=== PATIENT | male | born 1995 | race Two or more races ===

== ENCOUNTER 2020-06-04 12:58 | Emergency (ER) | payer MEDICAID, SELFPAY ==
--- NOTE | 2020-06-04 13:05 | ED_ITS ---
HPI - Psych General Chief Complaint: Psychiatric Symptoms Stated Complaint: CRISIS Time Seen by Provider: 06/04/20 13:03 Source: EMS Mode of arrival: EMS Limitations: no limitations History of Present Illness HPI Narrative: 24-year-old male who reports he has history of depression/anxiety and PTSD presents via EMS from home with complaint of suicidal ideations with increased depression and voices in his head telling him to do stuff. He reports that he does have any specific triggers recently however he has been feeling more down. He denies any illicit drug use, no alcohol use. Denies any actions prior to arrival to hurt himself. No specific plan expressed. MD complaint: suicidal ideation and feels depressed Onset (ago): day(s) Duration: constant History of same: Yes Relieving factors: none Exacerbating factors: none Treatments prior to arrival: none If self harm: admits thoughts of self harm Related Data Allergies Allergy/AdvReac Type Severity Reaction Status Date / Time No Known Allergies Allergy Verified 06/04/20 13:20 Review of Systems Review of Systems: Constitutional: No Weight loss, No Fever, No Chills, No Night Sweats, No Fatigue, No Malaise ENT/Mouth: No Hearing loss, No Ear Pain, No Nasal Congestion, No Sinus Pain, No Hoarseness, No sore throat, No Rhinorrhea, No Swallowing Difficulty Eyes: No Eye Pain, No Swelling, No Redness, No Foreign Body, No Discharge, No Vision Changes Cardiovascular: No Chest Pain, No SOB, No Dyspnea on Exertion, No Orthopnea, No Edema, No Palpitations Respiratory: No Cough, No Sputum, No Wheezing, No Smoke Exposure, No Dyspnea Gastrointestinal: No Nausea, No Vomiting, No Diarrhea, No Constipation, No abdominal Pain, No Hematochezia, No Melena Genitourinary: no irregular bleeding, No Dysuria, No Urinary Frequency, No Hematuria, No Urinary Incontinence, No Urgency, No Flank Pain, No Urinary Flow Changes, No Hesitancy Musculoskeletal: No joint pain, No Myalgias, No Joint Swelling Skin: No Skin Lesions, No rash Neuro: No Weakness, No Numbness, No Paresthesias, No Loss of Consciousness, No Dizziness, No Headache Psych: as noted in HPI Heme/Lymph: No Bruising, No Bleeding,No Lymphadenopathy Endocrine: No Polyuria, No Polydipsia, No Temperature Intolerance Yes all other systems are reviewed and are negative [facility] Past Medical History Attestation statement: The following information was validated with the patient. Medical History (Updated 06/04/20 @ 16:25 by Willie Ferrell NP) Anxiety Depression Hypoglycemia Social History Social History Alcohol intake: never Smoked in Last 30 Days: No Use of substances other than those prescribed or required for medical reasons: No Advance Directives: No Advance Directives Information Provided: Yes Physical Exam Vital Signs: Vital Signs: Last Vital Signs Temp 98.2 F 06/04/20 16:04 Pulse 60 06/04/20 16:04 Resp 18 06/04/20 16:04 BP 119/77 06/04/20 16:04 Pulse Ox 98 06/04/20 16:04 Body Mass Index 27.0 Reviewed Const: Other: Flat affect General: cooperative and healthy appearing; No acute distress or intoxicated appearing Nutritional Appearance: average body habitus Orientation/consciousness: patient oriented x3 HENMT: Head: Yes normal to inspection Ears: hearing grossly normal bilaterally Eyes: General: appearance normal, both eyes and all related structures Visual Manzanares: normal visual manzanares by confrontation Neck: Neck: Yes normal visual inspection, No positive Brudzinski's sign, No positive Kernig's sign and No tender Thyroid: Thyroid normal Chest: Chest palpation & inspection: normal inspection of the chest Resp: Effort & Inspection: normal respiratory effort Cardio: Jugular venous distension: no JVD GI: Inspection: Yes normal to inspection Percussion: Yes normal to percussion Auscultation: normal bowel sounds : General: Yes no CVA tenderness Back/Spine/Pelvis: Back: no CVA tenderness Skin: General skin exam: no rashes or lesions noted Neuro: General: patient oriented x3 Extrem: General: Yes normal to inspection Course Course Course Narrative: 1301 In review 24-year-old male with reported history of anxiety, depression and PTSD presenting with increased feeling of depression with auditory hallucinations and thoughts of self-harm with no specific plan expressed. Offers no medical complaints. Well nontoxic appearing. Will need medical screening labs and it is crisis evaluation after medically clear. Reevaluation(s) Reevaluation #1: Evaluate care team cleared for discharge. Referral made to outpatient also primary care information provided. Patient feels comfortable plan. No SI or HI. Cleared for discharge. Consultations Consultation #1: Care team Bing MDM - Psych Restraints Face to Face Assessment: Face to Face Assessment: Current Situation: After assessment of the patient, a review of the pertinent medical record and a discussion with nursing staff, I feel the patient requires a restrain interve ntion. Reaction To: [] Medical Condition: [] Behavioral State: [] Continued Need: [] Lab Data Result diagrams: 06/04/20 13:38 06/04/20 13:38 Labs: Lab Results 06/04/20 06/04/20 06/04/20 Range/Units 13:38 13:38 13:38 WBC 11.8 H (4.8-10.8) X10*3/uL RBC 5.05 (4.60-5.80) X10*6/uL Hgb 13.3 L (14.0-18.0) g/dl Hct 40.0 L (42-52) % MCV 79.2 L (80-98) fL MCH 26.3 L (27.0-33.0) pg MCHC 33.3 (31.0-36.0) g/dl RDW 14.1 (11.0-16.0) % Plt Count 267 (160-400) X10*3/uL MPV 9.4 (9.4-12.4) fL Immature Gran % (Auto) 0.3 (0.0-0.4) % Neut % (Auto) 72.6 (45-73) % Lymph % (Auto) 19.2 L (20-40) % [place] % (Auto) 7.3 (2-11) % Eos % (Auto) 0.3 (0-4) % Baso % (Auto) 0.3 (0-2) % Lymph # (Auto) 2.3 (1.2-4.9) X10*3/uL [place] # (Auto) 0.9 (0.1-1.2) X10*3/uL Eos # (Auto) 0.0 (0.0-0.4) X10*3/uL Baso # (Auto) 0.0 (0.0-0.2) X10*3/uL Abs Immat Gran (auto) 0.04 H (0.00-0.03) X10*3/uL Absolute Neuts (auto) 8.6 H (2.0-8.3) X10*3/uL Absolute Nucleated RBC 0.000 (0.0-0.012) X10*3/uL Nucleated RBC % (auto) 0.0 (0.0-0.2) /100WBC Sodium 139 (135-145) mmol/L Potassium 3.9 (3.3-5.1) mmol/l Chloride 104 (96-108) mmol/L Carbon Dioxide 29 (22-29) mmol/L Anion Gap 10 L (12-20) BUN 9 (9-16) mg/dL Creatinine 0.86 (0.5-1.4) mg/dL Estim Creat Clear Calc 147.1 Estimated GFR > 60 Random Glucose 93 (60-115) mg/dL Calcium 9.6 (8.4-10.2) mg/dL Total Bilirubin 0.6 (0.0-1.0) mg/dL AST 15 (5-37) U/L ALT 19 (0-40) U/L Alkaline Phosphatase 67 (39-117) U/L Total Protein 7.6 (6.5-8.0) g/dL Albumin 4.5 (3.5-5.0) g/dL Urine Color Urine Appearance Urine pH (5.0-8.0) Ur Specific [place] (1.005-1.025) Urine Protein (NEG-TRACE) MG/DL Urine Glucose (UA) (NEG) MG/DL Urine Ketones (NEG) MG/DL Urine Blood (NEG) Urine Nitrite (NEG) Ur Leukocyte Esterase (NEG) Urine Opiates Screen (Not Detect) Ur Barbiturates Screen (Not Detect) Ur Phencyclidine Scrn (Not Detect) Ur Amphetamines Screen (Not Detect) U Benzodiazepines Scrn (Not Detect) Urine Cocaine Screen (Not Detect) U Marijuana (THC) Screen (Not Detect) Ethyl Alcohol < 10 mg/dL 06/04/20 06/04/20 Range/Units 13:38 13:38 WBC (4.8-10.8) X10*3/uL RBC (4.60-5.80) X10*6/uL Hgb (14.0-18.0) g/dl Hct (42-52) % MCV (80-98) fL MCH (27.0-33.0) pg MCHC (31.0-36.0) g/dl RDW (11.0-16.0) % Plt Count (160-400) X10*3/uL MPV (9.4-12.4) fL Immature Gran % (Auto) (0.0-0.4) % Neut % (Auto) (45-73) % Lymph % (Auto) (20-40) % [place] % (Auto) (2-11) % Eos % (Auto) (0-4) % Baso % (Auto) (0-2) % Lymph # (Auto) (1.2-4.9) X10*3/uL [place] # (Auto) (0.1-1.2) X10*3/uL Eos # (Auto) (0.0-0.4) X10*3/uL Baso # (Auto) (0.0-0.2) X10*3/uL Abs Immat Gran (auto) (0.00-0.03) X10*3/uL Absolute Neuts (auto) (2.0-8.3) X10*3/uL Absolute Nucleated RBC (0.0-0.012) X10*3/uL Nucleated RBC % (auto) (0.0-0.2) /100WBC Sodium (135-145) mmol/L Potassium (3.3-5.1) mmol/l Chloride (96-108) mmol/L Carbon Dioxide (22-29) mmol/L Anion Gap (12-20) BUN (9-16) mg/dL Creatinine (0.5-1.4) mg/dL Estim Creat Clear Calc Estimated GFR Random Glucose (60-115) mg/dL Calcium (8.4-10.2) mg/dL Total Bilirubin (0.0-1.0) mg/dL AST (5-37) U/L ALT (0-40) U/L Alkaline Phosphatase (39-117) U/L Total Protein (6.5-8.0) g/dL Albumin (3.5-5.0) g/dL Urine Color YELLOW Urine Appearance CLEAR Urine pH 6.5 (5.0-8.0) Ur Specific [place] 1.020 (1.005-1.025) Urine Protein TRACE (NEG-TRACE) MG/DL Urine Glucose (UA) NEG (NEG) MG/DL Urine Ketones NEG (NEG) MG/DL Urine Blood NEG (NEG) Urine Nitrite NEG (NEG) Ur Leukocyte Esterase NEG (NEG) Urine Opiates Screen Not Detected (Not Detect) Ur Barbiturates Screen Not Detected (Not Detect) Ur Phencyclidine Scrn Not Detected (Not Detect) Ur Amphetamines Screen Not Detected (Not Detect) U Benzodiazepines Scrn Not Detected (Not Detect) Urine Cocaine Screen Not Detected (Not Detect) U Marijuana (THC) Screen Not Detected (Not Detect) Ethyl Alcohol mg/dL Discharge Plan Discharge Clinical Impression: Depression Patient Disposition: Home, Self-Care Instructions: Depression (ED) Referrals: ED Physician,Generic [Emergency Provider] - 2 days (Primary care Your psychiatric team )
[2020-06-04 13:20] VITALS: BP 134/92; BP 147/97; PULSE 76; PULSE 80; RESP 18; TEMP 36.4; O2SAT 96; O2SAT 99; BMI 27.0
[2020-06-04 13:48] LABS: MANUAL DIFF FLAG NO
[2020-06-04 13:50] LABS: Basophils Percent Auto 0.3 % (0-2); Eosinophils Percent Auto 0.3 % (0-4); Hemoglobin 13.3 g/dl (14.0-18.0); Imm Gran Abs Auto 0.04 X10*3/uL (0.00-0.03); Imm Gran Pct Auto 0.3 % (0.0-0.4); Lymphocytes Absolute Auto 2.3 X10*3/uL (1.2-4.9); Lymphocytes Percent Auto 19.2 % (20-40); Mean Corpuscular HGB Conc 33.3 g/dl (31.0-36.0); Mean Corpuscular Hemoglobin 26.3 pg (27.0-33.0); Mean Corpuscular Volume 79.2 fL (80-98); Mean Platelet Volume 9.4 fL (9.4-12.4); Monocytes Absolute Auto 0.9 X10*3/uL (0.1-1.2); Monocytes Percent Auto 7.3 % (2-11); Neutrophils Absolute Auto 8.6 X10*3/uL (2.0-8.3); Neutrophils Percent Auto 72.6 % (45-73); Platelet Count 267 X10*3/uL (160-400); Red Blood Count 5.05 X10*6/uL (4.60-5.80); Red Cell Distribution Width 14.1 % (11.0-16.0); White Blood Count 11.8 X10*3/uL (4.8-10.8)
[2020-06-04 13:55] LABS: Glucose Urine UA NEG (NEG); Leukocyte Esterase Urine NEG (NEG); Nitrite Urine NEG (NEG); PH 6.5 (5.0-8.0); Urine Blood NEG (NEG); Urine Ketones NEG (NEG); Urine Protein TRACE MG/DL (NEG-TRACE)
[2020-06-04 13:59] LABS: Appearance Urine CLEAR; Color Urine YELLOW
[2020-06-04 14:30] LABS: Alanine Aminotransferase 19 U/L (0-40); Albumin Level 4.5 g/dL (3.5-5.0); Alkaline Phosphatase 67 U/L (39-117); Anion Gap 10 (12-20); Aspartate Amino Transferase 15 U/L (5-37); Bilirubin Total 0.6 mg/dL (0.0-1.0); Blood Urea Nitrogen 9 mg/dL (9-16); Calcium 9.6 mg/dL (8.4-10.2); Carbon Dioxide 29 mmol/L (22-29); Chloride 104 mmol/L (96-108); Creatinine Clr Calc Pharmacy 147.1; Estimated Glomerular Filt Rate > 60; Glucose Random 93 mg/dL (60-115); Potassium 3.9 mmol/l (3.3-5.1); Sodium 139 mmol/L (135-145); Total Protein 7.6 g/dL (6.5-8.0)
[2020-06-04 14:31] LABS: Ethanol < 10 mg/dL
[2020-06-04 14:33] LABS: Amphetamine Screen Urine Not Detected (Not Detect); Barbiturates, Urine Not Detected (Not Detect); Benzodiazepines Screen Urine Not Detected (Not Detect); Cannabinoid Screen Urine Not Detected (Not Detect); Cocaine Screen Urine Not Detected (Not Detect); Opiate Screen Urine Not Detected (Not Detect); Phencyclidine Screen Urine Not Detected (Not Detect)
--- NOTE | 2020-06-04 15:23 | PC.NURSE ---
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 pt remains calm.
[2020-06-04 16:04] VITALS: BP 119/77; PULSE 60; RESP 18; TEMP 36.8; O2SAT 98
--- NOTE | 2020-06-04 17:04 | MHC.CARE ---
Seen by CARE team, cleared for D/C with recommendations and referral information.
== END 2020-06-04 17:00 | disposition home or self-care (01) ==
PROVIDERS: Nurse Practitioner Primary Care; Emergency Provider Emergency Medicine
DX: F33.1 Major depressive disorder, recurrent, moderate (principal); R45.851 Suicidal ideations; R44.0 Auditory hallucinations; F41.1 Generalized anxiety disorder; F43.0 Acute stress reaction; Z79.899 Other long term (current) drug therapy
CPT/HCPCS: 36415; 80053; 80307; 80320; 81003; 85025; 99284

== ENCOUNTER 2020-06-28 13:21 | Outpatient (REF) | payer MEDICAID, SELFPAY | END 2020-06-28 13:22 | disposition home or self-care (01) | LOC: HO.LAB 13:21 | PROVIDERS: Visit Provider Internal Medicine | DX: Z20.828 Contact with and (suspected) exposure to other viral communicable diseases (principal) | CPT/HCPCS: C9803; U0003 ==

== ENCOUNTER 2020-07-09 22:54 | Emergency (ER) | payer MEDICAID, SELFPAY ==
[2020-07-09 23:07] VITALS: BP 138/88; PULSE 99; RESP 18; TEMP 37; O2SAT 100; BMI 64.5
[2020-07-09 23:10] VITALS: BP 134/88; PULSE 96; RESP 18; TEMP 37; O2SAT 99; BMI 64.5
--- NOTE | 2020-07-09 23:13 | XR_ITS ---
EXAMINATION: CHEST 1 VIEW CLINICAL INFORMATION: Chest congestion. COMPARISON: 10/10/2017. TECHNIQUE: An AP view of the chest is provided. FINDINGS: The cardiac silhouette is not enlarged. The mediastinal and hilar contours are unremarkable. There are neither pleural effusions nor pneumothoraces. There are no consolidations. The osseous structures are stable. XR/XR chest 1V IMPRESSION: No evidence for acute disease.
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
== END 2020-07-09 23:24 | disposition home or self-care (01) ==
PROVIDERS: Emergency Provider Internal Medicine
DX: U07.1 COVID-19 (principal)
CPT/HCPCS: 71045; 99283

== ENCOUNTER 2021-07-21 14:13 | Emergency (ER) | payer MEDICAID, SELFPAY ==
--- NOTE | ~2021-07-21 | XR_ITS ---
EXAMINATION: XR ANKLE, RIGHT CLINICAL INFORMATION: Fall. COMPARISON: None TECHNIQUE: AP, lateral, and mortise views of the right ankle. FINDINGS: The bones and soft tissues are normal. No fracture. Alignment is anatomic. Joint spaces are maintained. No joint effusion. XR/XR ankle RT min 3V IMPRESSION: Normal right ankle.
[2021-07-21 17:50] VITALS: BP 135/84; PULSE 95; TEMP 36.6; O2SAT 98; BMI 30.1
--- NOTE | 2021-07-21 22:45 | ED_ITS ---
HPI - Extremity Injury (Lower) General Chief Complaint: Extremity Injury, Lower Stated Complaint: r ankle inj Time Seen by Provider: 07/21/21 14:22 Source: patient Mode of arrival: ambulatory Limitations: no limitations History of Present Illness HPI Narrative: 25-year-old male who presents emergency department for evaluation of right ankle pain. He states that he has been having pain in his right ankle for 4 months. He states that the right ankle is swollen. He states that the pain is worse after he stands for long period of time right free walks for long period of time. States the pain is a constant, dull ache which is 6/10. States that today he was unable to work secondary to his ankle pains he came to the emergency department for evaluation. He denies any injury to his ankle. He denies fever, chills, fatigue. Related Data Previous Rx's Medication Instructions Recorded ibuprofen 600 mg tablet 600 mg PO Q8H PRN #30 tab 07/21/21 Allergies Allergy/AdvReac Type Severity Reaction Status Date / Time No Known Allergies Allergy Verified 06/04/20 13:20 Review of Systems Review of Systems: Yes all other systems are reviewed and are negative [facility] Past Medical History [facility] Narrative: Social history: The patient works at [employer]. He denies tobacco use. He states he occasionally drinks alcohol. He denies drug use. Medical History Anxiety Depression Hypoglycemia Social History Social History Alcohol intake: never Advance Directives: No Physical Exam Vital Signs: Vital Signs: Last Vital Signs Temp 97.9 F 07/21/21 17:50 Pulse 95 07/21/21 17:50 BP 135/84 07/21/21 17:50 Pulse Ox 98 07/21/21 17:50 BMI result Body Mass Index 30.1 Const: Other: Awake, alert, male patient, he does not appear to be in distress, he is pleasant and cooperative and answers all questions appropriately Orientation/consciousness: oriented to person and oriented to place HENMT: Head: Yes normal to inspection, Yes normocephalic and Yes atraumatic Chest: Chest palpation & inspection: normal inspection of the chest Resp: Effort & Inspection: normal respiratory effort Neuro: General: oriented to person and oriented to place Extrem: Other: patient has soft tissue swelling to the lateral malleolus, this area is tender to palpation, the patient has pain with medial stress of the joint, there is no erythema or increased warmth. Psych: Appearance: grossly normal Speech and movement: Normal speech and movement present Course Course Course Narrative: 25-year-old male who presents emergency department for evaluation right ankle pain x4 months. The patient does not recount any injury. states these had swelling in the right ankle and this is often worse with prolonged standing and with walking. The pain was worse today knee was unable to work therefore came to emergency department for evaluation. Initial vital signs were normal. Examination of his right ankle did reveal soft tissue swelling over the lateral malleolus with pain with palpation of this area and pain with medial stress or of the joint. X-rays were obtained and there was no acute fracture noted. I suspect the patient has a sprain to his right ankle. His ankle was wrapped with an Jacek wrap and he was given a Aircast. He was prescribed ibuprofen 600 mg 3 times a day as needed for pain. He was given a note not return to work until Monday July 26, 2021. Discharge Plan Discharge Clinical Impression: Mild sprain of right ankle Patient Disposition: Home, Self-Care Instructions: Ankle Sprain (ED) Additional Instructions: The x-ray of your right ankle revealed no fracture or broken bone. Your examination did reveal swelling on the outside part of your ankle which is consistent with an ankle sprain. Wear the Jacek wrap and use the Aircast for 1 week. When you are not walking keep your leg elevated and apply ice to the swollen area to help reduce the pain and swelling. Take ibuprofen 600 mg pills, 1 pills every 6 hours as needed for pain. Follow-up with your doctor in 2 days. Please return to the emergency department if your symptoms get worse or if you develop any symptoms that are concerning to you. Please see work note Prescriptions: New ibuprofen 600 mg tablet 600 mg PO Q8H PRN (Reason: fever or pain) Qty: 30 RF: 0 Stand Alone Forms: Work/School Release
== END 2021-07-21 23:36 | disposition home or self-care (01) ==
PROVIDERS: Emergency Provider Emergency Medicine Emergency Medical Services
DX: S93.401A Sprain of unspecified ligament of right ankle, initial encounter (principal); X58.XXXA Exposure to other specified factors, initial encounter; Y93.9 Activity, unspecified; Y92.9 Unspecified place or not applicable; Y99.9 Unspecified external cause status
CPT/HCPCS: 73610; 99283; 99284

== ENCOUNTER 2022-06-15 21:31 | Emergency (ER) | payer MEDICAID, SELFPAY ==
--- NOTE | ~2022-06-15 | CT_ITS ---
EXAMINATION: CT HEAD WITHOUT CONTRAST CLINICAL INFORMATION: Pain. new onset seizure? COMPARISON: None. TECHNIQUE: Contiguous axial imaging was performed of the head without the administration of IV contrast. This CT examination was performed using dose optimization techniques as appropriate, variously including the following: *Automated exposure control *Adjustment of mA and/or kV according to patient size (this includes techniques or standardized protocols for targeted exams where dose is matched to indication/reason for exam; i.e. extremities or head) *Use of iterative reconstruction technique Dose: 716 mGy-cm FINDINGS: There is no evidence of acute intracranial hemorrhage or territorial infarction. No abnormal mass-effect or midline shift is seen. Box to white matter differentiation is well preserved. No extra axial fluid collections. The ventricles are normal in size and configuration. There is no abnormal attenuation within the brain parenchyma. The soft tissues and osseous structures are normal. Mucosal thickening is evident within the imaged paranasal sinuses with relative sparing of the frontal sinuses. Mastoid air cells are clear. CT/CT head/brain wo IV con IMPRESSION: 1. No acute intracranial pathology. If seizure is suspected, consider follow-up MRI of the brain with and without contrast on a nonemergent basis as this would be more sensitive and specific for potential epileptogenic foci. 2. Paranasal sinus mucosal disease.
[2022-06-15 21:37] VITALS: BP 151/100; PULSE 94; RESP 17; TEMP 36.7; O2SAT 100
[2022-06-15 21:47] LABS: Glucose, Whole Blood 92 mg/dL (60-115)
[2022-06-15 21:51] LABS: Basophils Percent Auto 0.3 % (0-2); Eosinophils Absolute Auto 0.3 X10*3/uL (0.0-0.4); Eosinophils Percent Auto 1.9 % (0-4); Hematocrit 32.7 % (42.0-52.0); Hemoglobin 10.5 g/dl (14.0-18.0); Imm Gran Abs Auto 0.04 X10*3/uL (0.00-0.03); Imm Gran Pct Auto 0.3 % (0.0-0.4); Lymphocytes Absolute Auto 2.2 X10*3/uL (1.2-4.9); MANUAL DIFF FLAG NO; Mean Corpuscular HGB Conc 32.1 g/dl (31.0-36.0); Mean Corpuscular Hemoglobin 22.4 pg (27.0-33.0); Mean Corpuscular Volume 69.7 fL (80.0-98.0); Mean Platelet Volume 8.8 fL (9.4-12.4); Monocytes Absolute Auto 1.1 X10*3/uL (0.1-1.2); Monocytes Percent Auto 8.2 % (2-11); Neutrophils Absolute Auto 10.1 x10*3/uL (2.0-8.3); Neutrophils Percent Auto 73.3 % (45-73); Platelet Count 393 X10*3/uL (160-400); Red Blood Count 4.69 X10*6/uL (4.60-5.80); Red Cell Distribution Width 14.8 % (11.0-16.0); White Blood Count 13.8 X10*3/uL (4.8-10.8)
[2022-06-15 22:27] LABS: Alanine Aminotransferase 23 U/L (0-40); Albumin Level 3.7 g/dL (3.5-5.0); Alkaline Phosphatase 77 U/L (39-117); Anion Gap 14 (12-20); Aspartate Amino Transferase 18 U/L (5-37); Bilirubin Total 0.3 mg/dL (0.0-1.0); Blood Urea Nitrogen 10 mg/dL (9-16); Carbon Dioxide 24 mmol/L (22-29); Chloride 105 mmol/L (96-108); Creatinine Clr Calc Pharmacy 169.4; Estimated Glomerular Filt Rate > 60; Glucose Random 104 mg/dL (60-115); Magnesium 2.1 mg/dL (1.6-2.6); Potassium 4.2 mmol/L (3.3-5.1); Sodium 139 mmol/L (135-145); Total Protein 6.9 g/dL (6.5-8.0)
[2022-06-15 22:45] VITALS: PULSE 77; RESP 14; TEMP 37.2; O2SAT 99
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
--- NOTE | 2022-06-15 22:46 | ECG_ITS ---
Test Reason : SYNCOPE Blood Pressure : / mmHG Vent. Rate : 075 BPM Atrial Rate : 075 BPM P-R Int : 178 ms QRS Dur : 082 ms QT Int : 352 ms P-R-T Axes : 037 014 013 degrees QTc Int : 393 ms Normal sinus rhythm Normal ECG Heart rate has decreased Referred By: Guru Baron Electronically Signed By:GABRIELA HOUSE MD
[2022-06-15 23:10] VITALS: BP 142/82; PULSE 95
[2022-06-15 23:16] LABS: COVID-19 Test Negative (Negative)
[2022-06-16 01:58] VITALS: BP 146/91; PULSE 90; RESP 17; TEMP 36.7; O2SAT 98
[2022-06-16 02:00] VITALS: O2SAT 98
--- NOTE | 2022-06-16 02:05 | PC.NURSE ---
Discharge instructions given and explained to pt. Pt ambulates safely, steady gait. Pt denies dizziness and pain at this time. No apparent distress.
== END 2022-06-16 02:10 | disposition home or self-care (01) ==
PROVIDERS: Emergency Provider Internal Medicine
DX: R55 Syncope and collapse (principal); R56.9 Unspecified convulsions; Z20.822 Contact with and (suspected) exposure to COVID-19; Z79.899 Other long term (current) drug therapy
CPT/HCPCS: 36415; 70450; 80053; 82947; 83735; 85025; 87635; 93005; 99284

== ENCOUNTER 2022-08-20 07:49 | Outpatient (REF) | payer MEDICAID, SELFPAY | END 2022-08-20 07:50 | disposition home or self-care (01) | LOC: HO.SH 07:49 | PROVIDERS: Visit Provider Registered Nurse | DX: Z01.118 Encounter for examination of ears and hearing with other abnormal findings (principal); H61.22 Impacted cerumen, left ear; H93.293 Other abnormal auditory perceptions, bilateral | CPT/HCPCS: 92557; 92567 ==

== ENCOUNTER → 2022-12-04 15:18 | Outpatient (BNV) | payer SELFPAY | PROVIDERS: PCP Registered Nurse; Visit Provider Internal Medicine | DX: D50.9 Iron deficiency anemia, unspecified (principal) | CPT/HCPCS: 99204; 99213 ==

== ENCOUNTER 2022-12-16 13:38 | Outpatient (REF) | payer MEDICAID, SELFPAY | END 2022-12-16 13:39 | disposition home or self-care (01) | LOC: HO.MDS 13:38 | PROVIDERS: Visit Provider Internal Medicine | DX: D50.9 Iron deficiency anemia, unspecified (principal) | CPT/HCPCS: 96374; J1756 ==

== ENCOUNTER 2022-12-24 13:44 | Outpatient (REF) | payer MEDICAID, SELFPAY | END 2022-12-24 13:45 | disposition home or self-care (01) | LOC: HO.MDS 13:44 | PROVIDERS: Visit Provider Internal Medicine | DX: D50.9 Iron deficiency anemia, unspecified (principal) | CPT/HCPCS: 96365; J1756 ==

== ENCOUNTER 2022-12-31 13:23 | Outpatient (REF) | payer MEDICAID, SELFPAY | END 2022-12-31 13:24 | disposition home or self-care (01) | LOC: HO.MDS 13:23 | PROVIDERS: PCP Registered Nurse; Visit Provider Internal Medicine | DX: D50.9 Iron deficiency anemia, unspecified (principal) | CPT/HCPCS: 96365; J1756 ==

== ENCOUNTER → 2023-01-01 11:37 | Outpatient (BNVA) | payer MEDICAID, SELFPAY | PROVIDERS: PCP Registered Nurse; Visit Provider Nurse Practitioner | DX: Z01.818 Encounter for other preprocedural examination (principal); D64.9 Anemia, unspecified | CPT/HCPCS: 99202 ==

== ENCOUNTER 2023-01-08 13:27 | Outpatient (REF) | payer MEDICAID, SELFPAY | END 2023-01-08 13:28 | disposition home or self-care (01) | LOC: HO.MDS 13:27 | PROVIDERS: Visit Provider Internal Medicine | DX: D50.9 Iron deficiency anemia, unspecified (principal) | CPT/HCPCS: 96365; J1756 ==

== ENCOUNTER 2023-01-13 13:13 | Outpatient (REF) | payer MEDICAID, SELFPAY | END 2023-01-13 13:14 | disposition home or self-care (01) | LOC: HO.MDS 13:13 | PROVIDERS: Visit Provider Internal Medicine | DX: D50.9 Iron deficiency anemia, unspecified (principal) | CPT/HCPCS: 96365; J1756 ==

== ENCOUNTER 2023-01-21 13:44 | Day surgery (SDC) | payer MEDICAID, SELFPAY ==
[2023-01-16 18:54] VITALS: BMI 30.2
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
[2023-01-21 13:48] VITALS: BP 128/87; PULSE 89; RESP 18; TEMP 36.8; O2SAT 98
[2023-01-21 14:33] LABS: Hemoglobin 11.1 g/dl (14.0-18.0); Mean Corpuscular HGB Conc 31.7 g/dl (31.0-36.0); Mean Corpuscular Hemoglobin 22.3 pg (27.0-33.0); Mean Corpuscular Volume 70.3 fL (80.0-98.0); Mean Platelet Volume 8.8 fL (9.4-12.4); Platelet Count 287 X10*3/uL (160-400); Red Blood Count 4.98 X10*6/uL (4.60-5.80); White Blood Count 11.9 X10*3/uL (4.8-10.8)
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
--- NOTE | 2023-01-21 14:43 | P.OP_ITS ---
Operative Note Operative Note Date of Service: 01/21/23 Narrative: Operative Information Procedure Description: EGD, Colonoscopy Indication: anemia Anesthesia: MAC FLEXIBLE TRANSORAL UPPER GASTROINTESTINAL ENDOSCOPY AND COLONOSCOPY PROCEDURE NOTE UPPER ENDOSCOPY Consent: Indications for the procedure and potential complications of bleeding, perforation, reaction to medications and missed diagnosis were discussed with the patient and informed consent was obtained. Instrument: Olympus GIF H 190 J mid size upper endoscope Monitoring: Vital signs and clinical assessment, continuous EKG monitoring, Pulse oximetry, Carbon Dioxide monitoring and blood pressure monitoring were done throughout the procedure. Procedure: The patient was placed in the left lateral decubitis position and pre-procedure medications were administered and a bite block was placed. The endoscope was inserted into the mouth and advanced under direct vision to the third part of duodenum. A careful inspection was made as the upper endoscope was withdrawn including a retroflexed examination of the proximal stomach; Findings and interventions are described below. Findings: Larynx:normal Esophagus: GE junction at 32 cm, diaphragm hiatus at 37 cm, distal esophagus with friable, bleeding mucosa with erosions and maceration, incompetent LES with schatzki ring noted. Stomach: Mild erythema. Biopsies were obtained. Grade 3 flap valve on retroflexed examination of the cardia. Duodenum: Normal bulb and descending duodenum, bx taken Intervention: Biopsies as noted above COLONOSCOPY Instrument: Olympus variable stiffness pediatric scope 190L Colonoscopy Monitoring: Vital signs and clinical assessment, continuous EKG monitoring, Pulse oximetry, Carbon Dioxide monitoring and blood pressure monitoring were done throughout the procedure. Colon withdrawal time was 6 minutes. Procedure: The patient was placed in the left lateral decubitis position and pre-procedure medications were administered. After a digital rectal examination of the ano-rectum, the video colonoscope was inserted into the rectum and advanced through the colon to the cecum/TI. The colonoscope was slowly withdrawn in a retrograde panoramic fashion and the colon mucosa was carefully examined including a retroflexed view of the rectum. Findings and interventions are described below. Procedure Difficulty:easy Findings: Terminal Ileum-nodular lymphoid hyperplasia Cecum:normal Ascending Colon: normal Transverse Colon -normal Descending Colon:normal Sigmoid Colon: patchy erythema noted Rectum: Retroflexion with small internal hemorrhoids, grade I, patchy erythema Anorectum - normal Colon preparation: [place] Bowel Preparation Scale Right colon; 3 Transverse colon: 3 Left colon; 3 (0 = Unprepared colon segment with mucosa not seen due to solid stool that cannot be cleared. 1 = Portion of mucosa of the colon segment seen, but other areas of the colon segment not well seen due to staining, residual stool and/or opaque liquid. 2 = Minor amount of residual staining, small fragments of stool and/or opaque liquid, but mucosa of colon segment seen well. 3 = Entire mucosa of colon segment seen well with no residual staining, small fragments of stool or opaque liquid) Impression and Post Procedure Diagnosis: Endoscopy Findings: erosive esophagitis hiatal hernia schatzki ring incompetent LES Colonoscopy Findings: internal hemorrhoids non specific colitis Plan: Await Pathology results High fiber diet leaflet avoid straining at stool, epsom salts and sitz bath, anusol supps or cream high dose PPI and repeat EGD in 3 months, consdier referral for hernia repair, GERD precautions Above findings were reviewed with the patient and relevant handouts were provided if indicated.
[2023-01-21 15:20] VITALS: BP 116/63; PULSE 88; RESP 20; TEMP 36.4; O2SAT 100
[2023-01-21 15:35] VITALS: BP 132/88; PULSE 81; RESP 18; O2SAT 100
[2023-01-21 15:50] VITALS: BP 138/90; PULSE 80; RESP 18; TEMP 36.3; O2SAT 99
== END 2023-01-21 14:30 | disposition home or self-care (01) ==
PROVIDERS: Nurse Practitioner; PCP Registered Nurse; Visit Provider Internal Medicine Gastroenterology
PROC: (CPT 45378; principal; 2023-01-21 15:00)
DX: D64.9 Anemia, unspecified (principal); K64.0 First degree hemorrhoids; K63.89 Other specified diseases of intestine; K92.0 Hematemesis; K29.50 Unspecified chronic gastritis without bleeding; K20.80 Other esophagitis without bleeding; K22.2 Esophageal obstruction; K22.4 Dyskinesia of esophagus; K44.9 Diaphragmatic hernia without obstruction or gangrene; K21.9 Gastro-esophageal reflux disease without esophagitis; E55.9 Vitamin D deficiency, unspecified; E16.2 Hypoglycemia, unspecified; E03.8 Other specified hypothyroidism; F32.A Depression, unspecified; R09.89 Other specified symptoms and signs involving the circulatory and respiratory systems; F41.1 Generalized anxiety disorder; Z79.899 Other long term (current) drug therapy
CPT/HCPCS: 45378; 43239; 36415; 85027; 88305; 88342; J2250

== ENCOUNTER 2023-02-03 12:26 | Outpatient (AMB) | payer MEDICAID, SELFPAY ==
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
[2023-02-03 12:38] VITALS: BP 126/80; PULSE 76; BMI 30.2
== END 2023-02-03 13:09 | disposition home or self-care (01) ==
PROVIDERS: PCP Registered Nurse; Visit Provider Nurse Practitioner
DX: K22.10 Ulcer of esophagus without bleeding (principal); D64.9 Anemia, unspecified; R19.7 Diarrhea, unspecified; R93.3 Abnormal findings on diagnostic imaging of other parts of digestive tract; K21.9 Gastro-esophageal reflux disease without esophagitis
CPT/HCPCS: 99214

== ENCOUNTER → 2023-02-03 12:26 | Outpatient (BNVA) | payer OTHER, SELFPAY | PROVIDERS: PCP Registered Nurse; Visit Provider Nurse Practitioner | DX: K22.10 Ulcer of esophagus without bleeding (principal); D64.9 Anemia, unspecified; R19.7 Diarrhea, unspecified; R93.3 Abnormal findings on diagnostic imaging of other parts of digestive tract; K21.9 Gastro-esophageal reflux disease without esophagitis | CPT/HCPCS: 99212 ==

== ENCOUNTER 2023-02-06 13:49 | Outpatient (REF) | payer OTHER, SELFPAY ==
[2023-02-06 15:57] LABS: Folate 6.3 ng/mL (> or = 4.0); Vitamin B12 282 pg/mL (200-900)
[2023-02-06 16:32] LABS: C Reactive Protein 2.59 mg/dL (< or = 0.50)
[2023-02-09 22:48] LABS: Transglutaminase Ab IgG <1.0 U/mL; Transglutaminase IgA <1.0 U/mL
== END 2023-02-06 13:50 | disposition home or self-care (01) ==
LOC: HO.LAB 13:49
PROVIDERS: Internal Medicine; PCP Registered Nurse; Visit Provider Nurse Practitioner
DX: R19.7 Diarrhea, unspecified (principal); D64.9 Anemia, unspecified; R93.3 Abnormal findings on diagnostic imaging of other parts of digestive tract; Z91.09 Other allergy status, other than to drugs and biological substances
CPT/HCPCS: 36415; 81479; 82397; 82607; 82746; 83520; 86003; 86140; 86364; 88346; 88350

== ENCOUNTER 2023-02-13 09:20 | Outpatient (REF) | payer OTHER, SELFPAY ==
--- NOTE | ~2023-02-13 | FL_ITS ---
PROCEDURE: FL BARIUM SWALLOW CLINICAL INFORMATION: Coughing/gasping for air. COMPARISON: None available. TECHNIQUE: Barium swallow examination is performed using fluoroscopic evaluation in addition to multiple fluoroscopic spot views. The patient is imaged both upright and prone and using both thick and thin sulfate along with effervescent granules. Fluoroscopy time: 1.4 minutes DAP: 20.7 Gy-cm2 Images: 56 FINDINGS: Following oral administration of thick barium and solid food such as turkey coated with barium there is normal propagation of bolus from oral cavity through the pharynx, esophagus into stomach without any evidence of obstruction, narrowing or stricture. On placing patient prone lying and oral administration of thin barium there is good distention of the entire esophagus. No intraluminal filling defect or extrinsic compression seen. There is a small sliding hiatal hernia with moderate gastroesophageal reflux. FL/FL barium swallow IMPRESSION: Small sliding hiatal hernia with moderate gastroesophageal reflux.
== END 2023-02-13 09:21 | disposition home or self-care (01) ==
LOC: HO.XRAY 09:20
PROVIDERS: PCP Registered Nurse; Visit Provider Nurse Practitioner
DX: K21.9 Gastro-esophageal reflux disease without esophagitis (principal); K22.10 Ulcer of esophagus without bleeding
CPT/HCPCS: 74220

== ENCOUNTER → 2023-02-13 09:21 | Outpatient (BNV) | payer SELFPAY | PROVIDERS: PCP Registered Nurse; Visit Provider Radiology Diagnostic Radiology | DX: K21.9 Gastro-esophageal reflux disease without esophagitis (principal) | CPT/HCPCS: 74221 ==

== ENCOUNTER 2023-03-17 13:08 | Outpatient (AMB) | payer SELFPAY ==
[2023-03-17 13:11] VITALS: BP 137/86; PULSE 89; BMI 30.2
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
== END 2023-03-17 15:07 | disposition home or self-care (01) ==
PROVIDERS: PCP Registered Nurse; Visit Provider Nurse Practitioner
DX: R93.3 Abnormal findings on diagnostic imaging of other parts of digestive tract (principal); K22.10 Ulcer of esophagus without bleeding
CPT/HCPCS: 99213

== ENCOUNTER → 2023-03-17 13:08 | Outpatient (BNVA) | payer OTHER, SELFPAY | PROVIDERS: PCP Registered Nurse; Visit Provider Nurse Practitioner | DX: K22.10 Ulcer of esophagus without bleeding (principal); R93.3 Abnormal findings on diagnostic imaging of other parts of digestive tract | CPT/HCPCS: 99212 ==

== ENCOUNTER 2023-04-23 07:44 | Day surgery (SDC) | payer OTHER, SELFPAY ==
[2023-04-21 11:51] VITALS: BMI 30.2
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
[2023-04-23] MEDS: Lactated Ringers 1,000 ML 100 ML IVCONT (08:02)
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
[2023-04-23 08:10] VITALS: BP 137/84; PULSE 61; RESP 18; TEMP 36.7; O2SAT 100
--- NOTE | 2023-04-23 08:41 | W.PM.OPN ---
Operative Note Operative Note Date of Service: 04/23/23 Narrative: Procedure Description: EGD Indication: hx of esophagitis Anesthesia: MAC FLEXIBLE TRANSORAL UPPER GASTROINTESTINAL ENDOSCOPY UPPER ENDOSCOPY Consent: Indications for the procedure and potential complications of bleeding, perforation, reaction to medications and missed diagnosis were discussed with the patient and informed consent was obtained. Instrument: Olympus GIF H 190 J mid size upper endoscope Monitoring: Vital signs and clinical assessment, continuous EKG monitoring, Pulse oximetry, Carbon Dioxide monitoring and blood pressure monitoring were done throughout the procedure. Procedure: The patient was placed in the left lateral decubitis position and pre-procedure medications were administered and a bite block was placed. The endoscope was inserted into the mouth and advanced under direct vision to the third part of duodenum. A careful inspection was made as the upper endoscope was withdrawn including a retroflexed examination of the proximal stomach; Findings and interventions are described below. Findings: Findings: Larynx:normal Esophagus: GE junction at 34 cm, diaphragm hiatus at 38 cm, 6 cm long area in the distal esophagus with friable, bleeding mucosa with erosions and maceration, incompetent LES with schatzki ring noted. 4-5 cm sliding hiatal hernia noted. Stomach: Mild erythema. Biopsies were obtained. Grade 3 flap valve on retroflexed examination of the cardia. Duodenum: Normal bulb and descending duodenum, Intervention: None Impression/Findings: severe esophagitis, LA grade D related to hiatal hernia, incompetent LES PLAN: refer to Dr Chirinos for consideration for hernia repair and fundoplication check compliance with PPI and GERD precautions
[2023-04-23 09:30] VITALS: BP 133/79; PULSE 80; RESP 18; TEMP 36.5; O2SAT 96
[2023-04-23 09:45] VITALS: BP 142/91; PULSE 60; RESP 16; TEMP 36.2; O2SAT 96
== END 2023-04-23 10:11 | disposition home or self-care (01) ==
PROVIDERS: PCP Registered Nurse; Visit Provider Internal Medicine Gastroenterology
PROC: 0DJ08ZZ Inspection of Upper Intestinal Tract, Via Natural or Artificial Opening Endoscopic (ICD-10-PCS; CPT 43235; principal; 2023-04-23 09:10)
DX: K20.81 Other esophagitis with bleeding (principal); R09.89 Other specified symptoms and signs involving the circulatory and respiratory systems; D64.9 Anemia, unspecified; K22.2 Esophageal obstruction; K22.4 Dyskinesia of esophagus; K44.9 Diaphragmatic hernia without obstruction or gangrene; K21.9 Gastro-esophageal reflux disease without esophagitis; F32.A Depression, unspecified; F41.1 Generalized anxiety disorder; E16.2 Hypoglycemia, unspecified; E55.9 Vitamin D deficiency, unspecified; E03.8 Other specified hypothyroidism
CPT/HCPCS: 43239; J3010

== ENCOUNTER → 2023-04-23 07:44 | Outpatient (BNV) | payer SELFPAY | PROVIDERS: PCP Registered Nurse; Visit Provider Internal Medicine Gastroenterology | DX: K20.90 Esophagitis, unspecified without bleeding (principal) | CPT/HCPCS: 43239 ==

== ENCOUNTER 2023-04-29 09:38 | Outpatient (AMB) | payer SELFPAY ==
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
[2023-04-29 09:48] VITALS: BP 140/72; PULSE 105; TEMP 37.4; O2SAT 98; BMI 29.3
== END 2023-04-29 12:28 | disposition home or self-care (01) ==
PROVIDERS: PCP Registered Nurse; Visit Provider Surgery
DX: K44.9 Diaphragmatic hernia without obstruction or gangrene (principal); K22.10 Ulcer of esophagus without bleeding; D64.9 Anemia, unspecified; E03.8 Other specified hypothyroidism
CPT/HCPCS: 99205

== ENCOUNTER → 2023-04-29 09:38 | Outpatient (REF) | payer OTHER, SELFPAY ==
--- NOTE | 2023-04-29 10:40 | ECG_ITS ---
Test Reason : gerd Blood Pressure : / mmHG Vent. Rate : 081 BPM Atrial Rate : 081 BPM P-R Int : 176 ms QRS Dur : 084 ms QT Int : 350 ms P-R-T Axes : 037 020 032 degrees QTc Int : 406 ms Normal sinus rhythm Normal ECG When compared with ECG of 15-JUN-2022 22:16, No significant change was found Referred By: Evangelist Rinaldi Electronically Signed By:ANMOL MARSHALL
== END ==
LOC: HO.CARD 09:38
PROVIDERS: PCP Registered Nurse; Visit Provider Surgery
DX: K21.9 Gastro-esophageal reflux disease without esophagitis (principal); K22.10 Ulcer of esophagus without bleeding; D64.9 Anemia, unspecified; E03.8 Other specified hypothyroidism
CPT/HCPCS: 93005

== ENCOUNTER 2023-04-30 08:23 | Outpatient (REF) | payer OTHER, SELFPAY ==
[2023-05-04 19:44] LABS: Zinc 54 mcg/dL (60-130)
[2023-05-05 15:34] LABS: Vitamin B1 11 nmol/L (8-30)
[2023-05-06 10:39] LABS: Vitamin A 34 mcg/dL (38-98)
== END 2023-04-30 08:24 | disposition home or self-care (01) ==
LOC: HO.LAB 08:23
PROVIDERS: PCP Registered Nurse; Visit Provider Surgery
DX: K21.9 Gastro-esophageal reflux disease without esophagitis (principal); K22.10 Ulcer of esophagus without bleeding; D64.9 Anemia, unspecified; E03.8 Other specified hypothyroidism
CPT/HCPCS: 36415; 80053; 80061; 82306; 82607; 82728; 83036; 83525; 83540; 83970; 84425; 84443; 84590; 84630; 85025; 85610; 85730; 86140

== ENCOUNTER 2023-05-01 12:51 | Outpatient (REF) | payer OTHER, SELFPAY | END 2023-05-01 12:52 | disposition home or self-care (01) | LOC: HO.LAB 12:51 | PROVIDERS: Visit Provider Surgery | DX: Z13.89 Encounter for screening for other disorder (principal) ==

== ENCOUNTER 2023-05-28 08:13 | Outpatient (AMB) | payer OTHER, SELFPAY ==
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
[2023-05-28 10:15] VITALS: BMI 29.7
== END 2023-05-28 10:34 | disposition home or self-care (01) ==
PROVIDERS: PCP Family Medicine; Visit Provider Surgery
DX: K21.9 Gastro-esophageal reflux disease without esophagitis (principal); K44.9 Diaphragmatic hernia without obstruction or gangrene
CPT/HCPCS: 99499

== ENCOUNTER 2023-05-28 08:13 | Outpatient (REF) | payer OTHER, SELFPAY | END 2023-05-28 08:14 | disposition home or self-care (01) | LOC: HO.LAB 08:13 | PROVIDERS: PCP Registered Nurse; Visit Provider Surgery | DX: Z13.89 Encounter for screening for other disorder (principal) ==

== ENCOUNTER 2023-05-29 09:11 | Outpatient (REF) | payer OTHER, SELFPAY ==
--- NOTE | 2023-05-29 09:16 | ECG_ITS ---
Test Reason : pre op Blood Pressure : / mmHG Vent. Rate : 070 BPM Atrial Rate : 070 BPM P-R Int : 188 ms QRS Dur : 088 ms QT Int : 388 ms P-R-T Axes : 036 018 024 degrees QTc Int : 419 ms Normal sinus rhythm Normal ECG When compared with ECG of 29-APR-2023 10:37, No significant change was found Referred By: Evangelist Rinaldi Electronically Signed By:GABRIELA HOUSE MD
[2023-05-29 09:49] LABS: MANUAL DIFF FLAG NO
[2023-05-29 10:06] LABS: Basophils Percent Auto 0.3 % (0-2); Eosinophils Absolute Auto 0.2 X10*3/uL (0.0-0.4); Eosinophils Percent Auto 1.2 % (0-4); Hematocrit 35.8 % (42.0-52.0); Hemoglobin 11.5 g/dl (14.0-18.0); Imm Gran Abs Auto 0.04 X10*3/uL (0.00-0.03); Imm Gran Pct Auto 0.3 % (0.0-0.4); Lymphocytes Absolute Auto 1.5 X10*3/uL (1.2-4.9); Lymphocytes Percent Auto 12.4 % (20-40); Mean Corpuscular HGB Conc 32.1 g/dl (31.0-36.0); Mean Corpuscular Hemoglobin 24.1 pg (27.0-33.0); Mean Corpuscular Volume 74.9 fL (80.0-98.0); Mean Platelet Volume 9.2 fL (9.4-12.4); Monocytes Absolute Auto 0.7 X10*3/uL (0.1-1.2); Monocytes Percent Auto 5.3 % (2-11); Neutrophils Absolute Auto 9.8 x10*3/uL (2.0-8.3); Neutrophils Percent Auto 80.5 % (45-73); Platelet Count 331 X10*3/uL (160-400); Red Blood Count 4.78 X10*6/uL (4.60-5.80); Red Cell Distribution Width 14.8 % (11.0-16.0); White Blood Count 12.2 X10*3/uL (4.8-10.8)
[2023-05-29 10:14] LABS: Estimated Average Glucose 103 mg/dL; Hemoglobin A1c % 5.2 % (<6.0)
[2023-05-29 10:26] LABS: INTERNATIONAL NORM RATIO 1.1 (0.9-1.1); Prothrombin Time 13.1 SEC (11.1-13.3)
[2023-05-29 10:28] LABS: Partial Thromboplastin Time 36.7 SEC (26.0-36.4)
[2023-05-29 10:55] LABS: Alanine Aminotransferase 16 U/L (0-40); Alkaline Phosphatase 65 U/L (39-117); Anion Gap 10 (12-20); Aspartate Amino Transferase 14 U/L (5-37); Bilirubin Total 0.7 mg/dL (0.0-1.0); Blood Urea Nitrogen 10 mg/dL (9-16); C Reactive Protein 1.72 mg/dL (< or = 0.50); Calcium 9.3 mg/dL (8.4-10.2); Carbon Dioxide 26 mmol/L (22-29); Chloride 106 mmol/L (96-108); Cholesterol 106 mg/dL (<200); Estimated Glomerular Filt Rate > 60; Glucose Random 106 mg/dL (60-115); HDL Cholesterol 37 mg/dL (>40); Iron 31 mcg/dL (45-160); LDL Cholesterol Calculated 60 mg/dL (<100); Percent Iron Saturation 12 % (15-50); Sodium 138 mmol/L (135-145); Total Iron Binding Capacity 256 mcg/dL (228-428); Total Protein 7.5 g/dL (6.5-8.0); Triglycerides 48 mg/dL (<150); Unsaturated Iron Binding 225 ug/dL
[2023-05-29 11:14] LABS: Ferritin 9 ng/mL (20-250); Insulin 12 uU/mL (2-29); TSH reflex Free T4 1.98 uIU/mL (0.32-4.0); Vitamin D 25-OH Total 20.7 ng/mL (>30)
[2023-05-29 11:15] LABS: Folate 7.8 ng/mL (> or = 4.0); Vitamin B12 303 pg/mL (200-900)
[2023-06-01 12:52] LABS: Calcium (PTHI) 9.1 mg/dL (8.6-10.3); PTHI 77 pg/mL (16-77)
[2023-06-02 02:53] LABS: Zinc 67 mcg/dL (60-130)
[2023-06-03 11:14] LABS: Vitamin A 32 mcg/dL (38-98)
[2023-06-04 17:38] LABS: Vitamin B1 10 nmol/L (8-30)
== END 2023-05-29 09:12 | disposition home or self-care (01) ==
LOC: HO.LAB 09:11
PROVIDERS: PCP Registered Nurse; Visit Provider Surgery
DX: K21.9 Gastro-esophageal reflux disease without esophagitis (principal); K44.9 Diaphragmatic hernia without obstruction or gangrene; K22.10 Ulcer of esophagus without bleeding; D64.9 Anemia, unspecified; E03.8 Other specified hypothyroidism
CPT/HCPCS: 36415; 80053; 80061; 82306; 82607; 82728; 82746; 83036; 83525; 83540; 83970; 84425; 84443; 84590; 84630; 85025; 85610; 85730; 86140; 93005

== ENCOUNTER 2023-06-02 10:58 | Inpatient (IN) | payer OTHER, SELFPAY ==
[2023-05-29 11:12] VITALS: BMI 29.7
--- NOTE | 2023-05-29 22:58 | P.HPSUR_ITS ---
Pre-Procedural Eval Section A Date of Service: 05/29/23 The patient is an INPATIENT: Yes The History & Physical has been completed within 30 days and I have reviewed it.: Yes Section B Chief Complaint: Diaphragmatic hernia without obstruction or gangre Relevant Family History (Specify if Yes): No Relevant Social History: None Present Medications: None Medical History: No relevant PMH History of Previous Operations: No relevant previous surgery Allergies: Allergies Allergy/AdvReac Type Severity Reaction Status Date / Time Milk Containing Products AdvReac Intermediate Gastrointestinal Verified 05/29/23 11:10 (Dairy) Upset Review of Systems Sugical H&P ROS: Negative: Constitution, Cardiovascular, Respiratory, Neurological, Psychiatric, Hem-Onc, Allergic/Immunologic, Gastrointestinal, Genitourinary, Musculoskeletal, Integumentary, Endocrine and Eyes/Ears/Nose/Throat Exam Surgical H&P Exam: Normal: HEENT, Normal: Heart, Normal: Lungs, Normal: Extremi ties, Normal: Abdomen, Normal: Skin and Normal: Neurological Plan Diagnosis/Plan: Unchanged I have reviewed the history and physical and performed a pertinent physical examination on my patient. No changes have occurred unless specified. Time Spent With Patient Time: Total time managing care of this patient today ____ minutes.
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
[2023-06-02] VITALS (8 sets, daily range): BP systolic 111–131; BP diastolic 63–78; PULSE 79–115; RESP 14–19; TEMP 36.3–36.8; O2SAT 94–100
--- NOTE | 2023-06-02 11:15 | PHA.MEDREC ---
Pharmacy Consult ? Medication Reconciliation Pharmacy has completed the medication reconciliation. Reviewed med rec done by nursing
[2023-06-02] MEDS: Lactated Ringers 1,000 ML 999 ML IV (11:35)
[2023-06-02] MEDS: Aprepitant 32 MG/4.4 ML VIAL IVPUSH (11:35)
--- NOTE | 2023-06-02 12:47 | P.BOP_ITS ---
Brief Operative Note Date of Service: 06/02/23 Pre-op diagnosis: Diaphragmatic hernia Post-op diagnosis: same Procedure: Date of Service: 06/02/23 Pre-op diagnosis: Diaphragmatic hernia, GERD, Esophagitis Post-op diagnosis: same Procedure: COMORBIDITIES: GERD, diaphragmatic hernia, anemia, anxiety, depression, hypothyroidism ?INDICATIONS: The patient is a 27 year old male who was referred to me from Dr. Ray for a diaphragmatic hernia and GERD confirmed by EGD and UGI. The patient is scheduled today for diaphragmatic hernia repair. Risks of recurrent hernia, dysphagia, persistent GERD, VTE, leak, infection and bleeding were discussed with the patient and he is in agreement with the plan. PROCEDURE: Esophago-gastroscopy, laparoscopic repair of incarcerated diaphragmatic hernia and laparoscopic gastropexy DESCRIPTION OF PROCEDURE: After informed consent was obtained from the patient, the patient was given preoperative antibiotics, and was transferred to the operating room. After successful induction of general anesthesia, pneumatic compression devices were placed on both lower extremities. An upper endoscopy was performed next. The oropharynx and upper esophagus appeared to be within normal limits. There was significant esophagitis at the distal esophagus. There was a large diaphragmatic hernia present consistent with the findings of the preoperative work-up. The stomach was entered. Then after all fluid and air were suctioned and the stomach was fully decompressed, the scope was withdrawn and secured in the mid esophagus. The patient was then prepped and draped in the usual sterile manner, and abdominal access was established at the right upper quadrant with the Tonny technique. A 12 mm blunt port was inserted, and the abdomen was insufflated with CO2 to a pressure of 15 mmHg. Under direct visualization, additional ports were placed, specifically two 5 mm Versi-step ports to the left upper quadrant, and a 5 mm Versi-Step port to the right upper quadrant. 1% lidocaine plain was used to infiltrate all port sites as well as all fascia defects. Following that, the patient was placed in a steep reverse Trendelenburg position. An additional 5 mm port was placed to the right flank for the Mediflex retractor that was used to retract the left lobe of the liver. The gastro-esophageal fat pad was opened with the ultrasonic device (Thwesterbewes, Olympus) and the anterior esophagus and hiatus were exposed. The angle of His was opened with the ultrasonic device the fundus of the stomach from any diaphragmatic and splenic attachments. There was splenomegaly. I then opened the gastrocolic ligament between the transverse colon and the greater curvature of the stomach with the ultrasonic device to enter the lesser sac and facilitate the ligation of the short gastric vessels. I started at a mid-point along the greater curvature and using the Thunderbeat, all attachments were divided. There were several large size short gastric vessels originating from the splenic artery. Because the anatomy was not clear and the posterior perigastric fat was herniated into the mediastinum posterior to the stomach, these large vessels were intially preserved. However once additional attachments were divided and the anatomy became more clear the short gastric vessels were divided all the way to the angle of His until the left bethanie was completely dissected at its entirety. There was an obvious significant-sized hiatal hernia. The stomach was incarcerated into the mediastinum with multiple thick adhesions. Mobilization of the stomach was very difficult and required tedious and careful dissection. I continued dissecting along the hiatus toward the left bethanie and the angle of His. The pars flaccida was opened. The vena cava was dilated and it was carefully protected. There was a large replaced left hepatic artery which was carefully preserved. That made the dissection more challenging. Neveretheless, I fully mobilized the fat pad that was incarcerated in the hernia and the stomach from t he right bethanie.. I then continued by dissecting even further into the posterior retro-esophageal space all the way to the angle of His. I continued to mobilize the esophagus into the mediastinum circumferentially. The esophagus was densely adhrent to the aorta and the majority of these adhesions were mobilized. Both vagal nerves were seen and preserved. Despite extensive circumferential dissection into the mediastinum, I was able to bring the GE junction at the level of the crura. The esophagus was shortened and it was not possible to mobilize the esophagus any further. I closed the hernia defect with three interrupted #0 Surgidac sutures using the Endo Stitch device, two of which were placed posterior and one of which anterior to the esophagus. ? A gastropexy was then performed in order to prevent postoperative GERD and partial gastric volvulus. Several interrupted 2.0 Surgidac sutures were placed between the greater curvature of the dissected stomach and the previously divided greater omentum and gastro-colic ligament using the Endo-Stitch device. ?An upper endoscopy was performed. There was no narrowing at the GE junction or any esophageal injury. The scope was easily advanced all the way to the pylorus which was clearly visualized. There was no narrowing anywhere. At that point the gastroscope was withdrawn from the patient?s mouth while we were decompressing the bowel and the stomach from any remaining air. I looked into the lesser sac to see how the stomach was situating and it was situating well. There was no bleeding from the, spleen, or short gastric vessels. The Mediflex retractor was removed, and the undersurface of the liver was inspected and there was no bleeding. The patient was placed in supine position. I closed the fascial defect of the 12 mm port site with a figure of eight #1 Polysorb suture. Then 30cc of Ropivacaine plain with 10 mg of Dexamethasone were used to infiltrate the fascial closure as well as all skin incisions. A total of 5ml of Zynrelef was applied in the Tonny wound. At this point, the abdomen was deflated, all ports were removed under direct vision, and no bleeding was noted from any of the port sites. The skin incisions were irrigated with saline and were closed with 4-0 absorbable monofilament sutures. Steri-Strips and OpSites were used to cover all incisions. The patient was extubated and was transferred in stable condition to the recovery room for further care. I was present and performed all swanson parts of the procedure. Ms. Navas was the first line production supervisor. There were no residents to assist with this case. Bryn Rinaldi MD, PhD, FACS Surgeon: Evangelist Rinaldi MD Anesthesia: GETA, local and other (TAP block and 5ml Zynrelef) Was an Ski Edge Painter used for this Procedure?: No Ski Edge Painter: Elisabeth Navas Estimated blood loss (mL): 10 IV fluids (mL): 3,500 Urine output (mL): 0 (No Fox to record output) Pathology: none sent Condition: stable Disposition: PACU
--- NOTE | 2023-06-02 12:50 | PM.PNGS ---
Subjective Subjective Date of Service: 06/02/23 Interval history: Feels well. Mild incisional pain. He is tolerating phase 1 bariatric diet Physical Exam Vital Signs: Vital Signs: Last Vital Signs Temp 98.1 F 06/02/23 11:21 Pulse 91 06/02/23 11:21 Resp 16 06/02/23 11:21 BP 126/73 06/02/23 11:21 Pulse Ox 97 06/02/23 11:21 O2 Del Method Room Air 06/02/23 11:21 BMI result Body Mass Index 29.7 GI: Inspection: Yes normal to inspection, Yes incision (clean, dry and intact) and Yes obesity Extrem: Right lower extremity: normal to inspection (no calf tenderness) Left lower extremity: normal to inspection (no calf tenderness) Objective Data Active Medications Albuterol Sulfate (Albuterol Sulfate (0.083%) 2.5 Mg/3 Ml Vial.Neb) 2.5 mg INHALE ONCE PRN PRN Reason: Wheezing Fentanyl (Fentanyl Citrate/Pf 100 Mcg/2 Ml Vial) 50 mcg IVPUSH Q5M PRN; Protocol PRN Reason: Pain, Severe (Pain Scale 7-10) Fentanyl (Fentanyl Citrate/Pf 100 Mcg/2 Ml Vial) 25 mcg IVPUSH Q5M PRN; Protocol PRN Reason: Pain, Moderate(Pain Scale 4-6) Hydromorphone HCl (Hydromorphone Hcl 0.5 Mg/0.5 Ml Syringe) 0.25 mg IVPUSH Q5M PRN; Protocol PRN Reason: Pain, Severe (Pain Scale 7-10) Lactated Ringer's (Lr) 1,000 mls @ 100 mls/hr IVCONT .Q10H [facility] Lactated Ringer's (Lr) 1,000 mls @ 999 mls/hr IV .Q1H1M [facility] Stop: 06/02/23 13:00 Last Admin: 06/02/23 11:35 Dose: 999 mls/hr Documented By: OLEKSANDR Promethazine HCl 6.25 mg/ (Sodium Chloride) 50.25 mls @ 201 mls/hr IV ONCE PRN PRN Reason: Nausea and Vomiting Ondansetron HCl (Ondansetron Hcl 4 Mg/2 Ml Vial) 4 mg IVPUSH ONCE PRN PRN Reason: Nausea and Vomiting Oxycodone HCl (Oxycodone Hcl Immed Release 5 Mg Tablet) 5 mg PO ONCE PRN PRN Reason: Pain, Severe (Pain Scale 7-10) Oxycodone HCl (Oxycodone Hcl Immed Release 5 Mg Tablet) 10 mg PO ONCE PRN PRN Reason: Pain, Severe (Pain Scale 7-10) Procedures Date of Service Date of Service: 06/02/23 Progress Note: A&P Assessment and plan (1) Diaphragmatic hernia: Status: Acute Assessment and Plan: s/p laparoscopic sleeve gastrectomy, lysis of adhesions, diaphragmatic hernia repair and gastropexy Doing well Will check am labs and if OK the patient will be discharged home (2) GERD (gastroesophageal reflux disease): Status: Acute (3) Subclinical hypothyroidism: Status: Acute (4) Anemia: Status: Acute (5) Erosive esophagitis: Status: Acute (6) Depression: Status: Acute (7) Anxiety: Status: Acute (8) Status post repair of paraesophageal diaphragmatic hernia: Status: Acute (9) Splenomegaly: Status: Acute Time Spent With Patient Time: Total time managing care of this patient today ____ minutes. Quality Stroke Does the patient have a stroke diagnosis?: No VTE Prior VTE?: No VTE Risk Level:: Surgical - moderate VTE Device Contraindication: N/A - Device Ordered VTE Drug Contraindication: Treatment Not Indicated
--- NOTE | 2023-06-02 17:01 | P.DS_ITS ---
DS: Providers Provider Date of Service: 06/03/23 Date of admission: 06/02/23 10:58 Primary care physician: Ilia James NP DS: Diagnosis Discharge Diagnosis (1) Diaphragmatic hernia: Status: Acute (2) GERD (gastroesophageal reflux disease): Status: Acute (3) Subclinical hypothyroidism: Status: Acute (4) Anemia: Status: Acute (5) Erosive esophagitis: Status: Acute (6) Depression: Status: Acute (7) Anxiety: Status: Acute DS: Summary Hospital Course Hospital Course: ADMITTING DIAGNOSIS: GERD, esophagiits, diaphragmatic hernia DISCHARGE DIAGNOSIS: same, s/p laparoscopic repair diaphragmatic hernia adn fabiola ropexy PAST SURGICAL HISTORY: EGD, colonoscopy PROCEDURE: upper endoscopy, laparoscopic repair of diaphragmatic hernia hernia and gastropexy DISCHARGE SUMMARY: History of Present Illness: The patient is a 27 year-old man with a BMI of 29kg/m2 who was referrec Magaly Ray for repair of large diaphragmatic hernia and continued treatment of esophagitis. Risks and complications of the surgery were discussed with the patient in advance, particularly the possibility of , pulmonary embolism, bleeding, bowel injury, GERD, cardiac, renal or pulmonary complications. The patient understood all the risks and was in agreement with the surgical plan. Hospital Course: The patient underwent an uneventful repair of diaphragmatic hernia and gastropexy on the day of admission. Postoperatively, the patient was transferred to the surgical floor. The patient received IV Acetaminophen and IV dilaudid for pain control. Patient had hsi diet advanced, NPO on POD #0. On postoperative day one, the patient was feeling well without nausea, vomiting, fevers, or tachycardia. The patient had some mild incisional pain and the abdomen was soft. During the day, the patient did fairly well, having some incisional pain, but able to ambulate adequately and to tolerate liquids well. Since the patient is doing well, we decided that the patient was ready to be discharged. The patient was given instructions to follow-up with me next week and to call my office for any fever over 101, persistent abdominal pain, nausea, vomiting, GERD, symptoms of DVT such as calf tenderness, or leg swelling, or pulmonary embolism such as chest pain or shortness of breath. The patient was also instructed to drink 40-60 ounces of liquids per day using the 1-ounce cups. The patient had been given prescriptions for Tylenol for pain, Zofran prn for nausea, and pantoprazole and carafate previously. The patient was encouraged to ambulate and use the incentive spirometer. The patient was allowed to shower, but no baths, and encouraged to stay active at home. All of these instructions were given to the patient personally. All questions were answered and the patient understood all instructions, the instructions were also given to the patient in print. Time Attestation Discharge coordination time: Less than 30 minutes Quality: Safe Use of Opioids Does Pt have an Active Cancer Diagnosis on the Problem List?: No Quality: Stroke Does the patient have a stroke diagnosis?: No Physical Exam Vital Signs: Vital Signs: Last Vital Signs Temp 98.1 F 06/02/23 11:21 Pulse 91 06/02/23 11:21 Resp 16 06/02/23 11:21 BP 126/73 06/02/23 11:21 Pulse Ox 97 06/02/23 11:21 O2 Del Method Room Air 06/02/23 11:21 BMI result Body Mass Index 29.7 Discharge Plan Discharge Anticipated Discharge Date/Time: 06/03/23 14:56 Patient Disposition: Home, Self-Care Discharge Diagnosis: s/p repair paraesophageal hernia Referrals: Ilia James, ANDROID PROGRAMMER [Primary Care Provider] - 1 Week Discharge Medications: Continued pantoprazole 40 mg tablet,delayed release (DR/EC) 40 mg PO DAILY Qty: 30 2RF Vitron-C 65 mg iron- 125 mg tablet,delayed release (DR/EC) 1 tab PO DAILY Qty: 30 2RF Rx Instructions: swallow whole; do not chew/break/dissolve/open sucralfate 100 mg/mL suspension 10 ml PO BID Qty: 400 2RF ondansetron 4 mg tablet,disintegrating 4 mg PO Q6H PRN (Reason: nausea and vomiting) Qty: 20 0RF cholecalciferol (vitamin D3) 125 mcg (5,000 unit) capsule 125 mcg PO DAILY Qty: 30 2RF vitamin A palmitate 3,000 mcg (10,000 unit) capsule 10,000 unit PO DAILY Qty: 30 1RF mecobalamin (vitamin B12) 1,000 mcg tablet,disintegrating 1,000 mcg sublingual DAILY Qty: 30 2RF Rx Instructions: place tablet under tongue and allow to dissolve for at least30 secs before swallowing Discontinued polyethylene glycol 3350 [Miralax] 17 gram powder in packet 17 g PO DAILY Qty: 14 0RF Rx Instructions: Mix each packet with 8oz of water, Crystal light, or Gatorade zero, or Propel and do 7 packets on 05/31/23 and another 7 packets on 06/01/23 Discharge Orders: Discharge Order (Routine); Ordered 06/03/23 Ordered By: Asa Weaver Activity on Discharge: No heavy lifting Stand Alone Forms: Patient Portal Discharge page Care Plan Goals: resolution of symptoms Health Concerns: GERD, hernia Plan of Treatment: No tub baths, sex or returning to work until discussed at first post op appointment. No exercise, alcohol, tobacco or illegal drug use. Continue to use incentive spirometer hourly while awake. Walk in home for 5- 10 minutes every 2 hours during the first week. Continue diet instructions per Dr Rinaldi and do NOT advance diet without discussing with him. 1. Please call your doctor or come back to the emergency room should any new symptoms arise. 2. You will receive a courtesy call from [facility] 24-48 hours after discharge. 3. Activity: abstain from alcohol, practice limited stair climbing, no bending, no driving, no exercise, no illicit substances, no lifting, no sex, no tub bath, no work. 4. Diet: continue as discussed with Dr Rinaldi. 5. Dressing Change/Wound Care: Do not change or remove surgical dressings unless they are wet or soiled. 6. Call your doctor if: - Your temperature exceeds 101.5 F - You experience excessive pain or swelling - You have an unexpected reaction to medication - You have excessive bleeding - You experience continued vomiting/nausea - Your incision begins to separate - Your incision shows signs of infection such as increased redness, swelling, excessive pain, heat, or drainage (light blood or clear fluid is normal) 7. General instructions: No lifting greater than 5 lbs for 1 week and not more than 20lbs the next 3?weeks. No driving until seen at the office in 5-7 days after surgery. If you do not move your bowels in the next 2 days, please tell?Dr. Rinaldi. Please walk around your home every hour or two to prevent blood clots from forming in your legs. You do not need to wake from sleeping to walk. Please sleep in a bed or couch to prevent kinking at the hips and knees. Please take your incentive spirometer (your lung mat linker) home with you and use it for the next few days to prevent pneumonia. You may shower, no hot tubs, baths or swimming pools.?Please follow the post op diet instructions you are?given by Dr Venancio waters? and text me daily at 5-6pm for an update.?If you have any issues or concerns or questions please communicate this to him via text.? The Celebrate shakes have all of the bariatric vitamins you need if you consume these shakes. Do not take anything without first discussing with Dr Rinaldi. Please make sure you are consuming at least 40 ounces of fluids per day starting the?day AFTER your discharge from the hospital. If you drink fast you may experience?bloating,?gas pain, burping, nausea or heartburn. In that case please slow down your pace and use the syringe to?understand better the?proper?pace and volume of drinking. Do not hesitate to contact the office with any questions at . The patient's medical history has been reviewed and they are considered low risk for post op DVT and therefore DVT prophylaxis is not considered necessary. Travel after surgery was reviewed. The patient has not disclosed any travel plan s during the first 30 days after surgery and they have been advised that within the first 30 days after surgery any bus, plane, train or car travel over 2 hours in duration is contraindicated due to the possibility of developing blood clots from immobility. Any travel, needs to include periods of ambulation of 10 minutes in duration every 2 hours. The patient was instructed to discuss any plans for travel during this period with their bariatric surgeon. Assessment: stable post op repari paraesophageal hernia and gastropexy Discharge Date/Time: 06/03/23 17:03
[2023-06-02] MEDS: Lactated Ringers 1,000 ML 125 ML IVCONT (18:11)
[2023-06-02] MEDS: ceFAZolin Sodium/Dextrose,Iso 2 GM/50 ML PIGGYBACK IV (18:20)
[2023-06-02] MEDS: Acetaminophen 1,000 MG/100 ML PIGGYBACK 16.7 MG IV (19:55)
[2023-06-02] MEDS: Sucralfate Oral Suspension 1 GM/10 ML ORAL.SUSP PO (20:00)
[2023-06-02] MEDS: Famotidine/PF 20 MG/2 ML VIAL IVPUSH (20:00)
[2023-06-02] MEDS: 0.9 % Sodium Chloride Flush 3 ML SYRINGE IVFLUSH (20:00)
[2023-06-03] MEDS: Acetaminophen 1,000 MG/100 ML PIGGYBACK 16.7 MG IV ×2 (01:29→08:04)
[2023-06-03] MEDS: Lactated Ringers 1,000 ML 125 ML IVCONT ×2 (01:44→09:55)
[2023-06-03 03:11] VITALS: BP 122/71; PULSE 79; RESP 16; TEMP 36.3; O2SAT 97
[2023-06-03 06:15] LABS: Basophils Percent Auto 0.1 % (0-2); Hemoglobin 11.3 g/dl (14.0-18.0); Imm Gran Abs Auto 0.05 X10*3/uL (0.00-0.03); Imm Gran Pct Auto 0.5 % (0.0-0.4); Lymphocytes Absolute Auto 0.7 X10*3/uL (1.2-4.9); Lymphocytes Percent Auto 6.7 % (20-40); MANUAL DIFF FLAG SCAN; Mean Corpuscular HGB Conc 32.3 g/dl (31.0-36.0); Mean Corpuscular Hemoglobin 23.8 pg (27.0-33.0); Mean Corpuscular Volume 73.7 fL (80.0-98.0); Mean Platelet Volume 9.5 fL (9.4-12.4); Monocytes Absolute Auto 0.2 X10*3/uL (0.1-1.2); Monocytes Percent Auto 2.1 % (2-11); Neutrophils Absolute Auto 9.7 x10*3/uL (2.0-8.3); Neutrophils Percent Auto 90.6 % (45-73); Platelet Count 317 X10*3/uL (160-400); Red Blood Count 4.75 X10*6/uL (4.60-5.80); Red Cell Distribution Width 14.4 % (11.0-16.0); SCAN SMEAR FLAG 1; White Blood Count 10.7 X10*3/uL (4.8-10.8)
[2023-06-03 06:36] LABS: Anion Gap 14 (12-20); Blood Urea Nitrogen 11 mg/dL (9-16); Carbon Dioxide 22 mmol/L (22-29); Chloride 105 mmol/L (96-108); Creatinine Clr Calc Pharmacy 182.4; Estimated Glomerular Filt Rate > 60; Glucose Random 117 mg/dL (60-115); Potassium 4.2 mmol/L (3.3-5.1); Sodium 137 mmol/L (135-145)
[2023-06-03 08:00] VITALS: BP 123/73; PULSE 80; RESP 18; TEMP 36.4; O2SAT 98
[2023-06-03] MEDS: Sucralfate Oral Suspension 1 GM/10 ML ORAL.SUSP PO ×2 (08:04→11:31)
[2023-06-03] MEDS: Famotidine/PF 20 MG/2 ML VIAL IVPUSH (08:04)
--- NOTE | 2023-06-03 10:51 | HO.POSTANES ---
Post Anesthesia Evaluation Post Anesthesia Evaluation Date of Service: 06/03/23 Vital Signs: Vital Signs Temp Pulse Resp BP Pulse Ox O2 Del Method 06/03/23 08:00 97.5 F 80 18 123/73 98 Room Air 06/03/23 03:11 97.3 F 79 16 122/71 97 Room Air 06/02/23 23:20 97.6 F 79 16 130/77 98 Room Air Anesthesia: General Endotracheal-GETA Mental Status: Awake Pain Control: Satisfactory Nausea/Vomiting: None Hydration: Adequate Anesthesia-Related Issues: No Anes. Related Issues
--- NOTE | 2023-06-03 11:48 | MHC.CM.PN ---
Addendum entered by Manju Alvarenga 06/03/23 11:51: CORRECTION:COVID VAXXED Original Note: CM MET WITH PT AT BEDSIDE. PT INDEPENDENT AND EMPLOYED. NO COVID VAX, NO HCP BUT WILLING TO COMPLETE ONE. PCP [facility] [employer]. + THRIVE ASSESSMENT, RESOURCE GUIDE PROVIDED. DP: HOME, NO SERVICES ANTICIPATED. PT HAS OWN RIDE HOME. CM WILL CONTINUE TO FOLLOW FOR ANY CHANGE IN DC PLAN/NEEDS.
[2023-06-03 11:51] LABS: SLIDE REVIEW VERIFIED
[2023-06-03 12:00] VITALS: BP 125/65; PULSE 96; RESP 14; TEMP 36.8; O2SAT 96
[2023-06-03 15:17] VITALS: BP 133/65; PULSE 88; RESP 16; TEMP 36.7; O2SAT 97
== END 2023-06-03 17:03 | disposition home or self-care (01) | DRG 220 ==
LOC: HO.SSSA 11:07 → HO.S3 16:36
PROVIDERS: Physician Assistant; Admitting Provider Surgery; PCP Registered Nurse; Visit Provider Surgery
PROC: 0BQT4ZZ Repair Diaphragm, Percutaneous Endoscopic Approach (ICD-10-PCS; principal; 2023-06-02 12:50)
DX: K44.0 Diaphragmatic hernia with obstruction, without gangrene (principal); K21.00 Gastro-esophageal reflux disease with esophagitis, without bleeding; Z79.899 Other long term (current) drug therapy
CPT/HCPCS: 36415; 80048; 85025; 86850; 86900; 86901; C9088; C9145; J0131; J0690; J1100; J1170; J2250; J2405; J2795; J3010

== ENCOUNTER → 2023-06-02 10:58 | Outpatient (BNV) | payer OTHER, SELFPAY | PROVIDERS: Admitting Provider Surgery; PCP Registered Nurse; Visit Provider Surgery | DX: K44.9 Diaphragmatic hernia without obstruction or gangrene (principal); K21.00 Gastro-esophageal reflux disease with esophagitis, without bleeding | CPT/HCPCS: 43659; 49507; 99024 ==

== ENCOUNTER 2023-06-10 10:38 | Outpatient (AMB) | payer OTHER, SELFPAY ==
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
[2023-06-10 10:45] VITALS: BP 136/75; PULSE 98; TEMP 37.1; O2SAT 97; BMI 27.1
== END 2023-06-10 11:16 | disposition home or self-care (01) ==
PROVIDERS: PCP Family Medicine; Visit Provider Surgery
DX: Z98.890 Other specified postprocedural states (principal); Z87.19 Personal history of other diseases of the digestive system; E66.3 Overweight
CPT/HCPCS: 99024

== ENCOUNTER → 2023-06-10 10:38 | Outpatient (BNVA) | payer OTHER, SELFPAY | PROVIDERS: PCP Family Medicine; Visit Provider Surgery ==

== ENCOUNTER 2023-07-10 09:27 | Outpatient (AMB) | payer OTHER, SELFPAY ==
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
[2023-07-10 09:38] VITALS: BP 134/75; PULSE 88; TEMP 36.2; O2SAT 97; BMI 27.5
== END 2023-07-10 10:03 | disposition home or self-care (01) ==
PROVIDERS: PCP Family Medicine; Visit Provider Surgery
DX: E66.3 Overweight (principal)
CPT/HCPCS: 99024

== ENCOUNTER → 2023-07-10 09:27 | Outpatient (BNVA) | payer OTHER, SELFPAY | PROVIDERS: PCP Family Medicine; Visit Provider Surgery | DX: E66.3 Overweight (principal); Z68.27 Body mass index [BMI] 27.0-27.9, adult | CPT/HCPCS: 99212 ==

== ENCOUNTER → 2023-07-28 08:19 | Outpatient (BNVA) | payer OTHER, SELFPAY | PROVIDERS: PCP Family Medicine; Visit Provider Nurse Practitioner | DX: K22.10 Ulcer of esophagus without bleeding (principal); K21.9 Gastro-esophageal reflux disease without esophagitis; R93.3 Abnormal findings on diagnostic imaging of other parts of digestive tract; Z87.19 Personal history of other diseases of the digestive system; Z98.890 Other specified postprocedural states | CPT/HCPCS: 99212 ==

== ENCOUNTER 2023-07-28 08:20 | Outpatient (AMB) | payer SELFPAY ==
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
[2023-07-28 08:23] VITALS: BP 131/80; PULSE 79; BMI 27.6
== END 2023-07-28 09:06 | disposition home or self-care (01) ==
PROVIDERS: PCP Family Medicine; Referring Provider Family Medicine; Visit Provider Nurse Practitioner
DX: K22.10 Ulcer of esophagus without bleeding (principal); R93.3 Abnormal findings on diagnostic imaging of other parts of digestive tract; K21.9 Gastro-esophageal reflux disease without esophagitis; Z98.890 Other specified postprocedural states; Z87.19 Personal history of other diseases of the digestive system
CPT/HCPCS: 99213

== ENCOUNTER 2023-08-21 08:10 | Outpatient (AMB) | payer OTHER, SELFPAY ==
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
[2023-08-21 08:20] VITALS: BP 135/71; PULSE 82; TEMP 37.1; O2SAT 98; BMI 27.4
== END 2023-08-21 08:51 | disposition home or self-care (01) ==
PROVIDERS: PCP Family Medicine; Visit Provider Surgery
DX: K44.9 Diaphragmatic hernia without obstruction or gangrene (principal); Z98.890 Other specified postprocedural states
CPT/HCPCS: 99024

== ENCOUNTER → 2023-08-21 08:10 | Outpatient (BNVA) | payer OTHER, SELFPAY | PROVIDERS: PCP Family Medicine; Visit Provider Surgery | DX: Z48.815 Encounter for surgical aftercare following surgery on the digestive system (principal); Z87.19 Personal history of other diseases of the digestive system | CPT/HCPCS: 99212 ==

== ENCOUNTER 2023-09-09 12:41 | Outpatient (AMB) | payer SELFPAY ==
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
[2023-09-09 12:59] VITALS: BP 128/66; PULSE 88; TEMP 36.8; O2SAT 96; BMI 27.0
== END 2023-09-09 13:26 | disposition home or self-care (01) ==
PROVIDERS: PCP Family Medicine; Referring Provider Family Medicine; Visit Provider Physician Assistant Surgical
DX: E66.3 Overweight (principal)
CPT/HCPCS: 99214

== ENCOUNTER → 2023-09-09 12:41 | Outpatient (BNVA) | payer OTHER, SELFPAY | PROVIDERS: PCP Family Medicine; Visit Provider Physician Assistant Surgical | DX: E66.3 Overweight (principal); Z68.27 Body mass index [BMI] 27.0-27.9, adult | CPT/HCPCS: 99212 ==